=== PATIENT | male | born 1970 | race Hispanic/Latino ===

== ENCOUNTER 2017-07-29 08:01 | Emergency (ER) | payer OTHER ==
[2017-07-29] MEDS ORDERED: Benzonatate 100 MG CAP ONE (10:10)
[2017-07-29] MEDS ORDERED: AMOXicillin 250 MG CAP ONE (10:10)
== END 2017-07-29 10:15 | disposition home or self-care (01) ==
LOC: MADERS 08:01
DX: J20.9 Acute bronchitis, unspecified (principal)
CPT/HCPCS: 99282

== ENCOUNTER 2017-07-31 13:45 | Emergency (ER) | payer OTHER ==
[~2017-07-31 13:45] MED LIST: Sodium Chloride 0.9% 1,000 ML BAG ONE
[2017-07-31] MEDS ORDERED: Nitroglycerin 2% Ointment 1 INCH/1 GM Packet ONE (14:11)
[2017-07-31 14:21] LABS: #Basophils 0.1 thou/uL (0.0-0.2); #Eosinphils 0.1 thou/uL (0.0-0.7); #Lymphocytes 0.9 thou/uL (1.20-3.40); #Monocytes 0.6 thou/uL (0.11-0.59); #Neutrophils 7.3 thou/uL (1.40-6.50); %Basophils 1.1 % (0.0-1.0); %Eosinophils 0.6 % (0.0-10.0); %Monocytes 6.4 % (0.0-10.0); %Neutrophils 81.9 % (42.0-75.0); Mean Corpuscular HGB CONC 34.1 g/dL (32.0-36.0); Mean Corpuscular Hemoglobin 31.7 pg (27.0-31.0); Mean Corpuscular Volume 92.8 fl (80.0-94.0); Mean Platelet Volume 7.9 fL (7.4-10.4); Platelet Count 201 thou/uL (130-400); RBC Distribution Width 12.5 % (11.5-14.5); Red Blood Cell (RBC) Count 4.73 mill/uL (4.70-6.10); White Blood Cell (WBC) Count 8.9 thou/uL (4.8-10.8)
--- NOTE | 2017-07-31 14:29 | RAD ---
CHEST 1 VIEW: Date: 07/31/17 HISTORY: Dyspnea. COMPARISON: None. FINDINGS: There is cardiomegaly and pulmonary vascular congestion. Patchy interstitial and alveolar opacities. No significant pleural fluid. No pneumothorax or osseous abnormalities. IMPRESSION: Congestive heart failure. POS: [facility]
[2017-07-31 14:30] LABS: INR-International Normal Ratio 1.3; PTT 28.6 SEC (22.9-36.1); Prothrombin Time 16.6 SEC (12.0-14.7)
[2017-07-31 14:39] LABS: Anion Gap 16 mmol/L (10-20); BUN (Urea Nitrogen) 29 mg/dL (8.9-20.6); Calc. Creatinine Clearance 0 mL/min (70-130); Carbon Dioxide 21 mmol/L (22-29); Chloride 109 mmol/L (98-107); Estimated GFR-MDRD 69; Glucose 103 mg/dL (70-105); Sodium 142 mmol/L (136-145)
[2017-07-31 14:42] LABS: CKMB 3.2 ng/mL (0-6.6); Troponin I 0.136 ng/mL (< 0.028)
[2017-07-31] MEDS ORDERED: Furosemide 40 MG/4 ML VIAL ONE (14:55)
[2017-07-31 15:38] LABS: Bilirubin Negative (Negative); Blood, Urine Negative (Negative); Clarity Clear (Clear); Glucose, Urine (Dipstick) Negative (Negative); Leukocyte Negative (Negative); Nitrite Negative (Negative); Protein, Urine (Dipstick) 100 mg/dL (Neg-Trace); pH, Urine 5.5 (5.0-9.0)
[2017-07-31 15:43] LABS: Bacteria/HPF Rare-Few HPF (None Seen); RBC/HPF 0-3 HPF (0-3); WBC/HPF 0-3 HPF (0-3)
== END 2017-07-31 15:33 | disposition short-term general hospital (02) ==
LOC: MADERS 13:45
DX: I48.91 Unspecified atrial fibrillation (principal); I50.9 Heart failure, unspecified; R79.89 Other specified abnormal findings of blood chemistry; Z79.899 Other long term (current) drug therapy
CPT/HCPCS: 36415; 71045; 80048; 81003; 81015; 82553; 83880; 84484; 85025; 85610; 85730; 87040; 93005; 96361; 96374; 96375; J1940; J7050